=== PATIENT | male | born 1985 | race Caucasian/White ===

== ENCOUNTER 2019-09-09 15:25 | Emergency (ER) | payer BC, OTHER ==
[2019-09-09] MEDS ORDERED: SODIUM CHLORIDE 0.9% 1,000 ML IV ONE (15:45)
[2019-09-09] MEDS ORDERED: LORazepam 2 MG/ML VIAL IVP STA (15:45)
[2019-09-09] MEDS ORDERED: ONDANSETRON 4 MG/2 ML VIAL IVP STA (15:45)
--- NOTE | 2019-09-09 15:47 | ED Physician Documentation ---
PD HPI SEIZURE - Stated complaint Stated Complaint: SEIZURES - Chief complaint Chief Complaint: Neuro - History obtained from History obtained from: Patient, Family - History of Present Illness Timing - onset: Today (34-year-old gentleman with history of psoriasis and alcohol abuse presents after a seizure at work today. He is never had a seizure before. It sounds like he was in his usual state of health and his sister found him actively seizing and cyanotic. He was fine before that reportedly. Now he has a headache and is vomiting as well. He was very confused on the way here. He denies any recent changes in his alcohol, he drinks at night but not during the day. He did drink last night. He has not had anything to drink today. No history of seizures. No drug use except for marijuana.) Review of Systems Ten Systems: 10 systems reviewed and negative Constitutional: denies: Fever, Chills Cardiac: denies: Chest pain / pressure, Palpitations Respiratory: denies: Dyspnea, Cough GI: reports: Nausea, Vomiting. denies: Abdominal Pain PD PAST MEDICAL HISTORY - Allergies Allergies/Adverse Reactions: Allergies Allergy/AdvReac Type Severity Reaction Status Date / Time No Known Drug Allergies Allergy Verified 09/09/19 15:38 PD ED PE NORMAL - Vitals Vital signs reviewed: Yes - General General: Alert and oriented X 3, Other (Actively retching and shaky) - HEENT HEENT: PERRL, EOMI, Other (Tremulous in the tongue) - Neck Neck: Supple, no meningeal sign, No bony TTP - Cardiac Cardiac: Other (Tachycardic but regular no murmur) - Respiratory Respiratory: No respiratory distress, Clear bilaterally - Abdomen Abdomen: Soft, Non tender - Back Back: No CVA TTP, No spinal TTP - Derm Derm: Normal color, Warm and dry - Extremities Extremities: No edema, No calf tenderness / cord - Neuro Neuro: Alert and oriented X 3, No motor deficit, No sensory deficit, Normal speech, Other (Very mildly confused) Eye Opening: Spontaneous Motor: Obeys Commands Verbal: Oriented GCS Score: 15 - Psych Psych: Normal mood Results - Vitals Vitals: Vital Signs - 24 hr 09/09/19 09/09/19 09/09/19 15:31 16:30 17:00 Temperature 36.4 C L Heart Rate 126 H 98 95 Respiratory 18 18 16 Rate Blood Pressure 143/102 H 125/100 H 134/103 H O2 Saturation 100 99 95 09/09/19 17:30 Temperature Heart Rate 101 H Respiratory 16 Rate Blood Pressure 134/103 H O2 Saturation 100 Oxygen O2 Source Room air - EKG (time done) 1548 Rate: Rate (enter#) (127) Rhythm: Sinus tachycardia [place]: Normal Intervals: Normal [place] QRS: Normal Ischemia: Normal ST segments Computer interpretation: Agree with computer - Labs Labs: Laboratory Tests 09/09/19 09/09/19 09/09/19 15:56 15:56 16:07 WBC 7.8 RBC 4.74 Hgb 14.4 Hct 44.7 MCV 94.3 H MCH 30.4 MCHC 32.2 RDW 12.5 Plt Count 270 MPV 8.9 Neut # (Auto) 4.5 Lymph # (Auto) 1.9 [place] # (Auto) 1.0 Eos # (Auto) 0.3 Baso # (Auto) 0.2 H Absolute Nucleated RBC 0.00 Nucleated RBC % 0.0 Sodium 139 Potassium 3.7 Chloride 98 L Carbon Dioxide 21 Anion Gap 20.0 H BUN 17 Creatinine 1.0 Estimated GFR (MDRD) 86 L Glucose 172 H Calcium 9.8 Total Bilirubin 0.7 AST 63 H ALT 51 Alkaline Phosphatase 58 Total Protein 8.6 H Albumin 4.9 Globulin 3.7 Albumin/Globulin Ratio 1.3 Lipase 50 Urine Opiates Screen NEGATIVE Ur Oxycodone Screen NEGATIVE Urine Methadone Screen NEGATIVE Ur Propoxyphene Screen NEGATIVE Ur Barbiturates Screen NEGATIVE Ur Tricyclics Screen NEGATIVE Ur Phencyclidine Scrn NEGATIVE Ur Amphetamine Screen NEGATIVE U Methamphetamines Scrn NEGATIVE U Benzodiazepines Scrn NEGATIVE Urine Cocaine Screen NEGATIVE U Cannabinoids Screen POSITIVE H Ethyl Alcohol 6.5 PD MEDICAL DECISION MAKING - ED course ED course: 34-year-old gentleman with a seizure today, potentially alcohol withdrawal related. He had normal mental status throughout his stay but a lot of retching and headache. He says he frequently gets migraines which usually respond to Excedrin. And this is very similar. Cranial imaging was negative. He did not get much relief with Ativan here, but got excellent relief with Haldol and Toradol Patient and family counseled as to the diagnosis and need for follow-up. Cessation of alcohol. Not driving for 6 months and avoiding dangerous situations if he were to have another seizure. Departure - Departure Disposition: 01 Home, Self Care Clinical Impression: Seizure Condition: Good Record reviewed to determine appropriate education?: Yes Instructions: ED Seizure New Onset Unk Cause Comments: Avoid alcohol, return for new or worsening symptoms. Also avoid situations that would be dangerous if you were to have another seizure such as ladders and swimming. No driving per for 6 months per [place] law. Call your doctor to arrange a follow-up appointment, make the next available appointment. In the interim, return anytime if worse or if new symptoms develop.
[2019-09-09 16:03] LABS: BASOPHILS # (AUTO) 0.2 10^3/uL (0.0-0.1); BASOPHILS % (AUTO) 1.9 %; EOSINOPHILS # (AUTO) 0.3 10^3/uL (0.0-0.7); EOSINOPHILS % (AUTO) 3.4 %; HGB - HEMOGLOBIN 14.4 g/dL (14.0-18.0); LYMPHOCYTES # (AUTO) 1.9 10^3/uL (1.5-3.5); LYMPHOCYTES % (AUTO) 24.4 %; MEAN CORPUSCULAR HEMOGLOBIN 30.4 pg (27.0-31.0); MEAN CORPUSCULAR HGB CONC 32.2 g/dL (32.0-36.0); MEAN CORPUSCULAR VOLUME 94.3 fL (80.0-94.0); MEAN PLATELET VOLUME 8.9 fL (7.4-11.4); MONOCYTES % (AUTO) 12.4 %; NEUTROPHILS # (AUTO) 4.5 10^3/uL (1.5-6.6); NEUTROPHILS % (AUTO) 57.5 %; PLT - PLATELET COUNT 270 10^3/uL (130-450); RED BLOOD COUNT 4.74 10^6/uL (4.70-6.10); RED CELL DISTRIBUTION WIDTH 12.5 % (12.0-15.0); WHITE BLOOD COUNT 7.8 x10^3/uL (4.8-10.8)
[2019-09-09 16:15] LABS: MUDS CUTOFF CONCENTRATIONS CUTOFF CONC BELOW:
[2019-09-09 16:16] LABS: ALBUMIN 4.9 g/dL (3.2-5.5); BILIRUBIN,TOTAL 0.7 mg/dL (0.2-1.0); CALCIUM 9.8 mg/dL (8.5-10.3); TOTAL PROTEIN 8.6 g/dL (6.7-8.2)
[2019-09-09 16:17] LABS: ALBUMIN/GLOBULIN RATIO 1.3 (1.0-2.2)
[2019-09-09] MEDS ORDERED: METOCLOPRAMIDE 10 MG/2 ML VIAL IVP STA (16:25)
[2019-09-09 16:32] LABS: AMPHETAMINE SCREEN,URINE NEGATIVE (NEGATIVE); BENZODIAZEPINES SCREEN, URINE NEGATIVE (NEGATIVE); COCAINE SCREEN URINE NEGATIVE (NEGATIVE); METHADONE SCREEN, URINE NEGATIVE (NEGATIVE); METHAMPHETAMINES SCREEN, URINE NEGATIVE (NEGATIVE); OPIATE SCREEN, URINE NEGATIVE (NEGATIVE); OXYCODONE SCREEN, URINE NEGATIVE (NEGATIVE); PROPOXYPHENE SCREEN, URINE NEGATIVE (NEGATIVE); TRICYCLIC ANTIDEPRESSANT,URINE NEGATIVE (NEGATIVE)
--- NOTE | 2019-09-09 16:44 | CT Report ---
Reason: headache, seizure Procedure Date: 09/09/2019 Accession Number: [id number] / [id number] Procedure: CT - HEAD WO CPT Code: Final Report FULL RESULT: EXAM: CT HEAD EXAM DATE: 09/09/2019 04:18 PM. CLINICAL HISTORY: Headache. Seizure. COMPARISON: None. TECHNIQUE: Multiaxial CT images were obtained from the foramen magnum to the vertex. Reformats: Sagittal and coronal. IV contrast: None. In accordance with CT protocol optimization, one or more of the following dose reduction techniques were utilized for this exam: automated exposure control, adjustment of mA and/or KV based on patient size, or use of iterative reconstructive technique. FINDINGS: Parenchyma: No intraparenchymal hemorrhage. No evidence of mass, midline shift, or CT findings of infarction. Ramon-white differentiation is distinct. Extraaxial Spaces: Normal for age. No subdural or epidural collections identified. Ventricles: Normal in size and position. Sinuses and Orbits: Imaged paranasal sinuses, orbits, and mastoids show no significant abnormality. Bones: No evidence of fracture or calvarial defect. Other: None. IMPRESSION: Normal head CT. RADIA
[2019-09-09] MEDS ORDERED: HALOPERIDOL 5 MG/ML VIAL IVP ONE (16:47)
[2019-09-09] MEDS ORDERED: KETOROLAC 30 MG/ML VIAL IVP STA (16:47)
[2019-09-09 18:12] VITALS: BP 126/80
== END 2019-09-09 18:15 | disposition home or self-care (01) ==
LOC: ED 15:25
DX: R56.9 Unspecified convulsions (principal)
CPT/HCPCS: 36415; 70450; 80053; 80320; 83690; 85025; 93005; 96361; 96374; 96375; 99283; 99285; J2060; J2765; 80306

== ENCOUNTER 2021-04-22 08:58 | Outpatient (CLI) | payer OTHER | END 2021-04-22 08:59 | disposition critical access hospital (66) | LOC: EMS 08:58 | DX: R56.9 Unspecified convulsions (principal) | CPT/HCPCS: A0425; A0427 ==

== ENCOUNTER 2021-04-22 09:27 | Emergency (ER) | payer BC, OTHER ==
[2021-04-22] MEDS ORDERED: MORPHINE 2 MG/ML CARPUJECT IVP STA (09:32)
[2021-04-22] MEDS ORDERED: METOCLOPRAMIDE 10 MG/2 ML VIAL IVP STA ×2 (09:32→10:04)
--- NOTE | 2021-04-22 09:35 | ED Physician Documentation ---
PD HPI HEADACHE - Stated complaint Stated Complaint: SEIZURE - History obtained from History obtained from: Patient, EMS - Additional information Additional information: 35-year-old gentleman had single seizure a few years ago. Was followed up by neurology and work-up was reportedly negative. Not on antiepileptic drugs. Today was in his driveway and reportedly had a 45-second tonic-clonic seizure with postictal. He complains of headache and vomiting now and is still slightly confused. Blood sugar in route was 190 something. Had Zofran in route without resolution of the nausea. This is his second seizure in his life. He does not recall which neurologist he followed up with a few years ago. Review of Systems Ten Systems: 10 systems reviewed and negative Constitutional: denies: Fever, Chills Ears: reports: Reviewed and negative Nose: reports: Reviewed and negative PD PAST MEDICAL HISTORY - Past Medical History Cardiovascular: None Respiratory: None Neuro: None Endocrine/Autoimmune: None GI: None : None HEENT: None Psych: None Musculoskeletal: None Derm: Psoriasis - Past Surgical History Past Surgical History: No - Present Medications Home Medications: Ambulatory Orders Medication Instructions Recorded Confirmed lamoTRIgine [Lamictal Xr] 25 mg PO DAILY #14 04/22/21 lamoTRIgine [Lamictal Xr] 50 mg PO DAILY #14 04/22/21 lamoTRIgine [Lamictal Xr] 100 mg PO DAILY #30 04/22/21 - Allergies Allergies/Adverse Reactions: Allergies Allergy/AdvReac Type Severity Reaction Status Date / Time No Known Drug Allergies Allergy Verified 04/22/21 09:38 - Social History Does the pt smoke?: Yes Smoking Status: Current every day smoker Does the pt drink ETOH?: Yes Does the pt have substance abuse?: Yes - Immunizations Immunizations are current?: No - POLST Patient has POLST: No PD ED PE NORMAL - Vitals Vital signs reviewed: Yes - General General: No acute distress, Other (Retching, slightly confused) - HEENT HEENT: PERRL, EOMI - Neck Neck: Supple, no meningeal sign, No bony TTP - Cardiac Cardiac: RRR, No murmur - Respiratory Respiratory: No respiratory distress, Clear bilaterally - Abdomen Abdomen: Non tender - Male Male : Other (Not incontinent of urine) - Derm Derm: Other (Severe psoriasis) - Neuro Neuro: pin chaser 2-12 intact Eye Opening: Spontaneous Motor: Obeys Commands Verbal: Confused GCS Score: 14 Results - Vitals Vitals: Vital Signs - 24 hr 04/22/21 04/22/21 04/22/21 09:34 10:08 10:30 Temperature 36.8 C 36.6 C Heart Rate 105 H 88 94 Respiratory 17 19 30 H Rate Blood Pressure 137/104 H 134/90 H 122/84 H O2 Saturation 96 98 94 04/22/21 11:00 Temperature Heart Rate 62 Respiratory 18 Rate Blood Pressure 140/110 H O2 Saturation 98 Oxygen O2 Source Room air - EKG (time done) 0933 Rate: Rate (enter#) (96) Rhythm: NSR [place]: Normal Intervals: Normal [place] QRS: Normal Ischemia: Normal ST segments - Labs Labs: Laboratory Tests 04/22/21 04/22/21 04/22/21 09:40 09:40 09:40 WBC 5.9 RBC 4.57 L Hgb 14.4 Hct 43.3 MCV 94.7 H MCH 31.5 H MCHC 33.3 RDW 12.7 Plt Count 162 MPV 8.6 Neut # (Auto) 4.2 Lymph # (Auto) 0.7 L [place] # (Auto) 0.6 Eos # (Auto) 0.2 Baso # (Auto) 0.1 Absolute Nucleated RBC 0.00 Nucleated RBC % 0.0 Sodium 136 Potassium 4.1 Chloride 94 L Carbon Dioxide 24 Anion Gap 18.0 H BUN 9 Creatinine 0.8 Estimated GFR (MDRD) 111 Glucose 245 H Calcium 9.3 Magnesium 1.3 L Total Bilirubin 1.2 H AST 109 H ALT 93 H Alkaline Phosphatase 62 Total Protein 7.6 Albumin 4.8 Globulin 2.8 Albumin/Globulin Ratio 1.7 Prolactin 16.47 Urine Opiates Screen Ur Oxycodone Screen Urine Methadone Screen Ur Propoxyphene Screen Ur Barbiturates Screen Ur Tricyclics Screen Ur Phencyclidine Scrn Ur Amphetamine Screen U Methamphetamines Scrn U Benzodiazepines Scrn Urine Cocaine Screen U Cannabinoids Screen Ethyl Alcohol < 5.0 04/22/21 09:50 WBC RBC Hgb Hct MCV MCH MCHC RDW Plt Count MPV Neut # (Auto) Lymph # (Auto) [place] # (Auto) Eos # (Auto) Baso # (Auto) Absolute Nucleated RBC Nucleated RBC % Sodium Potassium Chloride Carbon Dioxide Anion Gap BUN Creatinine Estimated GFR (MDRD) Glucose Calcium Magnesium Total Bilirubin AST ALT Alkaline Phosphatase Total Protein Albumin Globulin Albumin/Globulin Ratio Prolactin Urine Opiates Screen NEGATIVE Ur Oxycodone Screen NEGATIVE Urine Methadone Screen NEGATIVE Ur Propoxyphene Screen NEGATIVE Ur Barbiturates Screen NEGATIVE Ur Tricyclics Screen NEGATIVE Ur Phencyclidine Scrn NEGATIVE Ur Amphetamine Screen NEGATIVE U Methamphetamines Scrn NEGATIVE U Benzodiazepines Scrn NEGATIVE Urine Cocaine Screen NEGATIVE U Cannabinoids Screen POSITIVE H Ethyl Alcohol PD MEDICAL DECISION MAKING - ED course ED course: 35-year-old gentleman with recurrent seizure, the actually shows me a video of the tail end of it which does not completely looks like seizure. We talked about potential alcohol use, he says he only drinks about once a month. Noting his liver enzymes are elevated. He says this is a familial issue and really drinks only rarely. Prolactin slightly elevated more consistent with seizure although the limitations in this particular test are well-known. Elevated blood sugar regularly likely related to stress response. Call placed to his neurologist, Dr. Tiffanie Larsen in [place] at 10:30 PM. Over the next hour and 15 minutes we paged 2 more times, it turns out that she was on vacation but her partner had not called back. Patient and wanting to go home so we will start on medium dose Keppra and encouraged follow-up. Discussed results and need for follow-up as well as no driving. Head CT interpreted contemporaneously by me was normal. Headache somewhat difficult to treat with Reglan, but subsequent to the negative head CT Toradol was effective. right before discharge Dr. Quintero, her partner called back and there records show that he has a history of bipolar disorder and recommended Lamictal as opposed to Keppra. Departure - Departure Disposition: 01 Home, Self Care Clinical Impression: Seizure Condition: Good Record reviewed to determine appropriate education?: Yes Instructions: ED Seizure Recurrent Prescriptions: lamoTRIgine [Lamictal Xr] 100 mg PO DAILY #30 lamoTRIgine [Lamictal Xr] 25 mg PO DAILY #14 lamoTRIgine [Lamictal Xr] 50 mg PO DAILY #14 Comments: Definitely follow-up with the neurologist again. You can let her know that your prolactin level was 16.47. For our lab the high end of normal for a male is 13.13. You do have modestly elevated liver enzymes, and a blood sugar of 245, you should get rechecked with your doctor. No driving for 6 months or until cleared by the neurologist. Return for new or worsening symptoms. Also do not do any activities that would be dangerous should you have a seizure again such as ladders or swimming.
[2021-04-22 09:47] LABS: BASOPHILS # (AUTO) 0.1 10^3/uL (0.0-0.1); EOSINOPHILS # (AUTO) 0.2 10^3/uL (0.0-0.7); EOSINOPHILS % (AUTO) 4.1 %; HCT - HEMATOCRIT 43.3 % (42.0-52.0); HGB - HEMOGLOBIN 14.4 g/dL (14.0-18.0); LYMPHOCYTES # (AUTO) 0.7 10^3/uL (1.5-3.5); MEAN CORPUSCULAR HEMOGLOBIN 31.5 pg (27.0-31.0); MEAN CORPUSCULAR HGB CONC 33.3 g/dL (32.0-36.0); MEAN CORPUSCULAR VOLUME 94.7 fL (80.0-94.0); MEAN PLATELET VOLUME 8.6 fL (7.4-11.4); MONOCYTES # (AUTO) 0.6 10^3/uL (0.0-1.0); MONOCYTES % (AUTO) 10.2 %; NEUTROPHILS # (AUTO) 4.2 10^3/uL (1.5-6.6); NEUTROPHILS % (AUTO) 71.3 %; PLT - PLATELET COUNT 162 10^3/uL (130-450); RED BLOOD COUNT 4.57 10^6/uL (4.70-6.10); RED CELL DISTRIBUTION WIDTH 12.7 % (12.0-15.0); WHITE BLOOD COUNT 5.9 x10^3/uL (4.8-10.8)
[2021-04-22 09:59] LABS: MUDS CUTOFF CONCENTRATIONS CUTOFF CONC BELOW:
[2021-04-22 10:02] LABS: ALBUMIN 4.8 g/dL (3.2-5.5); ALBUMIN/GLOBULIN RATIO 1.7 (1.0-2.2); ALKALINE PHOSPHATASE 62 IU/L (42-121); ALT ALANINE AMINOTRANSFERASE 93 IU/L (10-60); AST ASPARTATE AMINOTRANSFERASE 109 IU/L (10-42); BILIRUBIN,TOTAL 1.2 mg/dL (0.2-1.0); BUN - BLOOD UREA NITROGEN 9 mg/dL (6-20); CALCIUM 9.3 mg/dL (8.5-10.3); CARBON DIOXIDE - CO2 24 mmol/L (21-32); CHLORIDE 94 mmol/L (101-111); CREATININE 0.8 mg/dL (0.6-1.2); ETOH - ETHANOL < 5.0 mg/dL; GFR - MDRD 111 (>89); GLUCOSE 245 mg/dL (70-100); MAGNESIUM 1.3 mg/dL (1.7-2.8); POTASSIUM 4.1 mmol/L (3.5-5.0); SODIUM 136 mmol/L (135-145); TOTAL PROTEIN 7.6 g/dL (6.7-8.2)
[2021-04-22 10:15] LABS: AMPHETAMINE SCREEN,URINE NEGATIVE (NEGATIVE); BARBITURATE SCREEN,UR NEGATIVE (NEGATIVE); BENZODIAZEPINES SCREEN, URINE NEGATIVE (NEGATIVE); COCAINE SCREEN URINE NEGATIVE (NEGATIVE); METHADONE SCREEN, URINE NEGATIVE (NEGATIVE); METHAMPHETAMINES SCREEN, URINE NEGATIVE (NEGATIVE); OPIATE SCREEN, URINE NEGATIVE (NEGATIVE); OXYCODONE SCREEN, URINE NEGATIVE (NEGATIVE); PROPOXYPHENE SCREEN, URINE NEGATIVE (NEGATIVE); THC CANNABINOID SCREEN, URINE POSITIVE (NEGATIVE); TRICYCLIC ANTIDEPRESSANT,URINE NEGATIVE (NEGATIVE)
--- NOTE | 2021-04-22 10:26 | CT Report ---
PROCEDURE: HEAD WO INDICATIONS: seizure headache TECHNIQUE: Noncontrast 4.5 mm thick angled axial sections acquired from the foramen magnum to the vertex. For r adiation dose reduction, the following was used: automated exposure control, adjustment of mA and/or kV according to patient size. COMPARISON: None. FINDINGS: Image quality: Excellent. CSF spaces: Basal cisterns are patent. No extra-axial fluid collections. Ventricles are normal in size and shape. Brain: No midline shift. No intracranial masses or hemorrhage. Ramon-white matter interface is norm al. Skull and face: Calvarium and visualized facial bones are intact, without suspicious lesions. Sinuses: Visualized sinuses and mastoids are clear. IMPRESSION: No evidence acute stroke, hemorrhage, or mass. Normal brain parenchyma. Reviewed by: Steve Henley MD on 04/22/2021 10:25 AM PDT Approved by: Steve Henley MD on 04/22/2021 10:25 AM PDT Station ID: [id number]
[2021-04-22] MEDS ORDERED: ONDANSETRON 4 MG/2 ML VIAL IVP STA ×2 (11:07→12:01)
[2021-04-22] MEDS ORDERED: KETOROLAC 15 MG/ML VIAL IVP STA (11:07)
[2021-04-22 12:02] VITALS: BP 125/75
== END 2021-04-22 12:17 | disposition home or self-care (01) ==
LOC: EDUNIT# → ED 09:27
DX: R56.9 Unspecified convulsions (principal); R11.2 Nausea with vomiting, unspecified; R74.8 Abnormal levels of other serum enzymes; R73.9 Hyperglycemia, unspecified; L40.9 Psoriasis, unspecified; F17.200 Nicotine dependence, unspecified, uncomplicated
CPT/HCPCS: 36415; 70450; 80053; 80306; 80320; 83735; 84146; 85025; 93005; 96374; 96375; 96376; 99285; J2765

== ENCOUNTER 2023-09-09 08:00 | Outpatient (CLI) | payer OTHER ==
--- NOTE | 2023-09-09 11:10 | XRAY Report ---
PROCEDURE: Chest 2 View X-Ray INDICATIONS: ACUTE BRONCHITIS TECHNIQUE: 2 views of the chest were acquired. COMPARISON: None. FINDINGS: Surgical changes and devices: None. Lungs and pleura: No pleural effusions or pneumothorax. Lungs are clear. Mediastinum: Mediastinal contours appear normal. Heart size is normal. Bones and chest wall: No suspicious bony lesions. Overlying soft tissues appear unremarkable. IMPRESSION: No acute cardiopulmonary process. Reviewed by: David Gustafson MD on 09/09/2023 9:59 AM [facility] Approved by: David Gustafson MD on 09/09/2023 9:59 AM [facility] Station ID: [id number]
== END 2023-09-09 23:59 | disposition home or self-care (01) ==
LOC: DI.S 08:00
PROVIDERS: ATTEND Physician Assistant
DX: J20.9 Acute bronchitis, unspecified (principal)

== ENCOUNTER 2023-10-15 19:05 | Emergency (ER) | payer OTHER ==
[2023-10-15 19:29] VITALS: BP 157/87; O2SAT 100
== END 2023-10-15 19:51 | disposition left against medical advice (07) ==
LOC: ED 19:05
DX: Z53.21 Procedure and treatment not carried out due to patient leaving prior to being seen by health care provider (principal)

== ENCOUNTER 2023-12-29 11:53 | Outpatient (CLI) | payer OTHER | END 2023-12-29 23:59 | disposition critical access hospital (66) | LOC: EMS 11:53 | DX: R11.2 Nausea with vomiting, unspecified (principal) | CPT/HCPCS: A0425; A0429 ==

== ENCOUNTER 2023-12-29 12:24 | Emergency (ER) | payer OTHER ==
--- NOTE | 2023-12-29 12:35 | ED Physician Documentation ---
History of Present Illness - Stated complaint Stated Complaint: N/V - History obtained from History obtained from: Patient, EMS - Additonal information Additional information: 38-year-old gent with history of seizure disorder, alcohol use in remission with last drink about 8 months ago presents with a 3-day illness marked by vomiting. He started vomiting 3 days ago. Initially was not associate with abdominal pain, now feels like he has pain from retching. Today the vomit has become dark and bloody. No diarrhea in fact, he has not pooped in a couple of days. No fevers. His daughter has a URI, but no vomiting. No other sick contacts. PD PAST MEDICAL HISTORY - Past Medical History Cardiovascular: None Respiratory: None Neuro: None Endocrine/Autoimmune: None GI: None : None HEENT: None Psych: None Musculoskeletal: None Derm: Psoriasis - Past Surgical History Past Surgical History: No - Present Medications Home Medications: Ambulatory Orders Medication Instructions Recorded Confirmed lamoTRIgine [Lamictal Xr] 25 mg PO DAILY #14 04/22/21 lamoTRIgine [Lamictal Xr] 50 mg PO DAILY #14 04/22/21 lamoTRIgine [Lamictal Xr] 100 mg PO DAILY #30 04/22/21 Omeprazole 40 mg PO DAILY #30 cap 12/29/23 Ondansetron Odt [Zofran] 4 mg TL Q6H PRN #10 tablet 12/29/23 oxyCODONE [Roxicodone] 5 mg PO Q4-6H PRN #7 tablet 12/29/23 - Allergies Allergies/Adverse Reactions: Allergies Allergy/AdvReac Type Severity Reaction Status Date / Time No Known Drug Allergies Allergy Verified 12/29/23 12:49 - Social History Does the pt smoke?: Yes Smoking Status: Current every day smoker Does the pt drink ETOH?: Yes Does the pt have substance abuse?: Yes - Immunizations Immunizations are current?: No - POLST Patient has POLST: No PD ED PE NORMAL - Vitals Vital signs reviewed: Yes - General General: Alert and oriented X 3, Other (He is actively retching into a bag with bloody vomitus. It is speckles of blood mixed with clear fluid.) - HEENT HEENT: PERRL, EOMI - Neck Neck: Supple, no meningeal sign, No bony TTP - Cardiac Cardiac: Other (Tachycardic but regular without murmur) - Respiratory Respiratory: No respiratory distress, Clear bilaterally - Abdomen Abdomen: Soft, Non tender - Neuro Neuro: Alert and oriented X 3 Results - Vitals Vitals: Vital Signs - 24 hr 12/29/23 12/29/23 12/29/23 12:31 13:09 15:00 Temperature 36 C L Heart Rate 130 H 93 104 H Respiratory 21 18 22 Rate Blood Pressure 138/113 H 145/90 H 144/99 H O2 Saturation 98 100 99 Oxygen O2 Source Room air - Labs Labs: Laboratory Tests 12/29/23 12/29/23 12/29/23 12:30 12:45 12:45 WBC 14.2 H RBC 5.48 Hgb 16.5 Hct 49.0 MCV 89.4 MCH 30.1 MCHC 33.7 RDW 12.6 Plt Count 230 MPV 9.1 Neut # (Auto) 12.3 H Lymph # (Auto) 0.7 L [place] # (Auto) 1.0 Eos # (Auto) 0.0 Baso # (Auto) 0.2 H Absolute Nucleated RBC 0.00 Nucleated RBC % 0.0 PT INR VBG pH VBG pCO2 VBG pO2 VBG HCO3 VBG Total CO2 VBG O2 Saturation VBG Base Excess Sodium 136 Potassium 3.6 Chloride 87 L Carbon Dioxide 13 L Anion Gap 36.0 H BUN 14 Creatinine 0.9 Estimated GFR (MDRD) 95 Glucose 129 H Calcium 10.8 H Total Bilirubin 2.3 H AST 111 H ALT 90 H Alkaline Phosphatase 85 Total Protein 8.6 Albumin 5.5 Globulin 3.1 Albumin/Globulin Ratio 1.8 Gastric Fluid pH 4.0 Gastric Occult Blood POSITIVE Serum Ketones Blood Type Blood Type Recheck Antibody Screen 12/29/23 12/29/23 12/29/23 12:45 12:58 12:58 WBC RBC Hgb Hct MCV MCH MCHC RDW Plt Count MPV Neut # (Auto) Lymph # (Auto) [place] # (Auto) Eos # (Auto) Baso # (Auto) Absolute Nucleated RBC Nucleated RBC % PT 11.7 INR 1.1 VBG pH VBG pCO2 VBG pO2 VBG HCO3 VBG Total CO2 VBG O2 Saturation VBG Base Excess Sodium Potassium Chloride Carbon Dioxide Anion Gap BUN Creatinine Estimated GFR (MDRD) Glucose Calcium Total Bilirubin AST ALT Alkaline Phosphatase Total Protein Albumin Globulin Albumin/Globulin Ratio Gastric Fluid pH Gastric Occult Blood Serum Ketones Blood Type O NEGATIVE Blood Type Recheck O NEGATIVE Antibody Screen NEGATIVE 12/29/23 12/29/23 14:58 14:58 WBC RBC Hgb Hct MCV MCH MCHC RDW Plt Count MPV Neut # (Auto) Lymph # (Auto) [place] # (Auto) Eos # (Auto) Baso # (Auto) Absolute Nucleated RBC Nucleated RBC % PT INR VBG pH 7.371 VBG pCO2 24.7 L VBG pO2 49.5 H VBG HCO3 14.0 L VBG Total CO2 14.7 L VBG O2 Saturation 83.4 H VBG Base Excess -9.1 L Sodium Potassium Chloride Carbon Dioxide Anion Gap BUN Creatinine Estimated GFR (MDRD) Glucose Calcium Total Bilirubin AST ALT Alkaline Phosphatase Total Protein Albumin Globulin Albumin/Globulin Ratio Gastric Fluid pH Gastric Occult Blood Serum Ketones SMALL H Blood Type Blood Type Recheck Antibody Screen - Rads (name of study) CT A/P Relevant Findings:: Final report received, EMP independent interpretation of zoe DAVIDSON Medical Decision Making - ED course ED course: 38-year-old gentleman presents with vomiting, now bloody for the last 3 days. It was not initially bloody. Has some abdominal pain but benign exam and he feels like it is reactive to the vomiting itself. He does have guaiac positive vomit. H&H was reassuring in the setting of vomiting. Coags were normal. CMP notable for acidosis probably due to dehydration with elevated gap and some liver inflammation. Initially he had told me that he last drank 8 months ago and did admit to being an alcoholic in remission. On recheck after 2 rounds of antiemetics at around 2 PM he was feeling much better and complaining still of abdominal pain and sore throat but the nausea was improved. He did appear mildly tremulous and when queried again on alcohol use admits to ongoing drinking with last drink yesterday. He says he does not feel like he is in withdrawal. Given the labs so far, I will add on serum ketones and a venous blood gas as alcoholic ketoacidosis is a possibility. Given the sore throat and gastritis I will give him a GI cocktail as well. He had already received IV Protonix. Subsequently he did have small ketones but venous blood gas was not consistent with AKA. On reexamination at 3:50 PM his symptoms were much better, at this point he is really more complaining of sore throat and I ordered some Chloraseptic. CT imaging has been completed but not read by the radiologist. On my "wet read" of his CT I see severe steatosis of the liver. Otherwise it looks like a grossly normal study to me. Waiting on the radiologist. 5:14 PM: Radiology read is complete, consistent with my above "wet read." He is feeling better now has passed p.o. challenge. Discussed need for cessation of alcohol and he voices understanding. Departure - Departure Disposition: 01 Home, Self Care Clinical Impression: Gastritis Qualifiers: Gastritis type: alcoholic Chronicity: acute Gastritis bleeding: with bleeding Qualified Code(s): K29.21 - Alcoholic gastritis with bleeding Condition: Good Record reviewed to determine appropriate education?: Yes Instructions: ED Gastritis Prescriptions: Omeprazole 40 mg PO DAILY #30 cap oxyCODONE [Roxicodone] 5 mg PO Q4-6H PRN #7 tablet PRN Reason: Pain Ondansetron Odt [Zofran] 4 mg TL Q6H PRN #10 tablet PRN Reason: Nausea / Vomiting Comments: I sent your prescription electronically to the [facility] in [place]. It does appear that you have some alcoholic liver damage both on the CAT scan and on your labs. Otherwise I did not find anything too bad other than some dehydration and of course your terrible nausea and vomiting. No sign of significant blood loss from the vomiting. Overall this is consistent with what we call alcoholic gastritis. Most important thing is to stop drinking. I am pr escribing some nausea and pain medication as well. Also something for stomach acid. If symptoms are persistent you will need an upper endoscopy, but I do anticipate if you were to quit drinking and take the medications this will get better. Call your doctor to arrange a follow-up appointment, make the next available appointment. In the interim, return anytime if worse or if new symptoms develop. I am prescribing a short course of narcotic pain medication for you. These are potentially dangerous and addictive medications that should be used carefully. These medications may constipate you. Take an flty-bun-[id number] stool softener (docusate) twice daily with plenty of water while taking these medications. If you go 24 hours without a bowel movement, take neit-yvv-[id number] miralax, per package instructions. Do not drink or drive while taking these medications. If you received narcotic or sedating medications while in the emergency department, do not drive for 24 hours. Store this medication in a safe, secure place and out of reach of children. It is a violation of federal law to give or sell this medication to another person or to use in a manner other than prescribed. The ED will not refill narcotic prescriptions, including prescriptions lost or stolen. To dispose of unwanted medications: 1. [facility] provides a drop box for medication in pill form only (no liquids) 8:00 am to 4:30 p.m. Monday-Monday in the lobby of the [facility], [address] [place] [address]. Empty pills into ziplock bag before disposal. Call [phone] for information. 2.[employer] is a free service available to all [facility] residents. Go to [email or web address] Note that many narcotic pain relievers also contain Tylenol/acetaminophen. Please ensure that your total dose of acetaminophen from all sources does not exceed 3 g (3000 mg) per day.
[2023-12-29] MEDS: PANTOPRAZOLE 40 MG VIAL IVP STA (12:50)
[2023-12-29] MEDS: ONDANSETRON 4 MG/2 ML VIAL IVP STA (12:50)
[2023-12-29] MEDS: SODIUM CHLORIDE 0.9% 1,000 ML IV STA (12:51)
[2023-12-29 12:54] LABS: BASOPHILS # (AUTO) 0.2 10^3/uL (0.0-0.1); BASOPHILS % (AUTO) 1.1 %; EOSINOPHILS % (AUTO) 0.1 %; HGB - HEMOGLOBIN 16.5 g/dL (14.0-18.0); LYMPHOCYTES # (AUTO) 0.7 10^3/uL (1.5-3.5); LYMPHOCYTES % (AUTO) 5.1 %; MEAN CORPUSCULAR HEMOGLOBIN 30.1 pg (27.0-31.0); MEAN CORPUSCULAR HGB CONC 33.7 g/dL (32.0-36.0); MEAN CORPUSCULAR VOLUME 89.4 fL (80.0-94.0); MEAN PLATELET VOLUME 9.1 fL (7.4-11.4); MONOCYTES % (AUTO) 6.7 %; NEUTROPHILS # (AUTO) 12.3 10^3/uL (1.5-6.6); NEUTROPHILS % (AUTO) 86.4 %; PLT - PLATELET COUNT 230 10^3/uL (130-450); RED BLOOD COUNT 5.48 10^6/uL (4.70-6.10); RED CELL DISTRIBUTION WIDTH 12.6 % (12.0-15.0); WHITE BLOOD COUNT 14.2 x10^3/uL (4.8-10.8)
[2023-12-29 13:03] LABS: GASTROCCULT POSITIVE (Negative)
[2023-12-29 13:10] LABS: INR 1.1 (0.8-1.2); PT - PROTHROMBIN TIME 11.7 secs (9.9-12.6)
[2023-12-29] MEDS: METOCLOPRAMIDE 10 MG/2 ML VIAL IVP STA (13:13)
[2023-12-29 13:15] LABS: ALBUMIN 5.5 g/dL (3.2-5.5); ALBUMIN/GLOBULIN RATIO 1.8 (1.0-2.2); BILIRUBIN,TOTAL 2.3 mg/dL (0.2-1.0); CALCIUM 10.8 mg/dL (8.5-10.3); CREATININE 0.9 mg/dL (0.6-1.3); POTASSIUM 3.6 mmol/L (3.5-4.5); TOTAL PROTEIN 8.6 g/dL (6.4-8.9)
[2023-12-29] MEDS: MAG HYDROX/AL HYDROX/SIMETH 30 ML UDC PO STA (14:15)
[2023-12-29] MEDS: LIDOCAINE VISCOUS 2% 15 ML ORAL SYRINGE MM STA (14:15)
[2023-12-29] MEDS ORDERED: iohexoL-300 100 ML VIAL ONE (14:38)
[2023-12-29 15:07] LABS: VBG BASE EXCESS -9.1 mmol/L (-2 - +2); VBG OXYGEN SATURATION 83.4 % (60-80); VBG PCO2 24.7 mmHg (41-51); VBG PH 7.371 (7.31-7.41); VBG PO2 49.5 mmHg (25-47); VBG TOTAL CO2 14.7 mmol/L (24-29)
--- NOTE | 2023-12-29 16:29 | CT Report ---
PROCEDURE: Abdomen/Pelvis W INDICATIONS: iv only, abd pain vomit CONTRAST: 100ml omni 300 TECHNIQUE: After the administration of intravenous contrast, a CT scan of the abdomen and pelvis was performed. Images were recorded and evaluated at appropriate window settings. Reformats: coronal and sagittal. F or radiation dose reduction, the following was used: automated exposure control, adjustment of mA and /or kV according to patient size. COMPARISON: None. FINDINGS: Image quality: Diagnostic. Lower chest: Unremarkable. Liver: No solid mass. Marked hepatic steatosis. Gallbladder and biliary tree: No radiopaque stones or wall thickening. No biliary dilation. Spleen: No splenomegaly. Pancreas: No pancreatic ductal dilation. Adrenals: No adrenal nodule. Kidneys and ureters: No hydronephrosis. No renal cystic lesion which requires follow up. No solid mas s. Stomach, bowel and peritoneum: No bowel distension. No pathologic free fluid. Normal appendix. Lymph nodes: No central or retroperitoneal adenopathy. Vessels: No infrarenal aortic aneurysm. PELVIS Reproductive organs: Unremarkable. Bladder: No abnormal wall thickening, accounting for underdistention. Pelvic lymph nodes: No pelvic adenopathy by size criteria. Bones: No aggressive osseous abnormality. Other: No significant ventral or inguinal hernia. IMPRESSION: 1.No acute findings within the abdomen or pelvis to explain patient's symptoms. 2.Marked hepatic steatosis. Reviewed by: Donato Angel MD on 12/29/2023 4:28 PM PDT Approved by: Donato Angel MD on 12/29/2023 4:28 PM PDT Station ID: [id number]
[2023-12-29] MEDS: PHENOL THROAT SPRAY 177 ML MM PRN (17:06)
[2023-12-29 17:17] VITALS: O2SAT 100
[2023-12-29 17:26] VITALS: BP 123/111
[2023-12-29] MEDS: iohexoL-300 100 ML VIAL IVP ONE (18:22)
== END 2023-12-29 17:28 | disposition home or self-care (01) ==
LOC: EDUNIT# → ED 12:24
DX: K29.21 Alcoholic gastritis with bleeding (principal); F17.200 Nicotine dependence, unspecified, uncomplicated
CPT/HCPCS: 36415; 74177; 80053; 82009; 82803; 85025; 85610; 86850; 86900; 86901; 96361; 96374; 96375; 99284; A9270; J2765; Q9967